=== PATIENT | male | born 1945 | race Native Hawaiian/Other Pacific Islander ===

== ENCOUNTER 2018-07-11 14:13 | Emergency (ER) | payer OTHER, MEDICARE ==
[~2018-07-11] VITALS: Ht 175.3 cm; Wt 95.3 kg
[2018-07-11 14:53] LABS: PLATELET COUNT 272 K/uL (142-355)
[2018-07-11 15:20] VITALS: TEMP 97.9
[2018-07-11 15:35] LABS: POTASSIUM 3.3 mmol/L (3.6-5.2); SODIUM 135 mmol/L (136-145)
[2018-07-11 18:00] VITALS: BP 155/62
== END 2018-07-11 18:07 | disposition home or self-care (01) ==
LOC: ED 14:13
DX: N41.8 Other inflammatory diseases of prostate (principal); N40.1 Benign prostatic hyperplasia with lower urinary tract symptoms; R35.0 Frequency of micturition
CPT/HCPCS: 36415; 80053; 81000; 82550; 82553; 84484; 85027; 96360; 96361; 99284; Q9963